=== PATIENT | female | born 1940 | race Caucasian/White ===

== ENCOUNTER 2020-03-02 19:24 | Emergency (ER) | payer OTHER ==
[~2020-03-02] VITALS: Ht 149.9 cm; Wt 49.9 kg
[2020-03-02] MEDS ORDERED: LEVOTHYROXINE50 MCG PO (20:12)
[2020-03-02] MEDS ORDERED: VITAMIN D31250 MCG PO (20:12)
[2020-03-02] MEDS ORDERED: ABANEU-SL TABL1 EACH SL (20:13)
[2020-03-02] MEDS ORDERED: PROPRANOLOL HCL10 MG PO (20:13)
[2020-03-02] MEDS ORDERED: FOLIC ACID1 MG PO (20:13)
[2020-03-02] MEDS ORDERED: B-COMPLEX WITH1 EAC2 PO (20:13)
[2020-03-02] MEDS ORDERED: ROSUVASTATIN CA40 MG PO (20:14)
[2020-03-02] MEDS ORDERED: TELMISARTAN80 MG PO (20:14)
[2020-03-02] MEDS ORDERED: GLUMETZA500 MG PO (20:14)
[2020-03-02] MEDS ORDERED: CELECOXIB200 MG PO (20:15)
== END 2020-03-02 23:27 | disposition home or self-care (01) ==
LOC: ER 19:24
DX: L02.512 Cutaneous abscess of left hand (principal)